=== PATIENT | male | born 1955 | race Caucasian/White ===

== ENCOUNTER 2021-07-16 08:30 | Day surgery (SDC) | payer BC ==
[~2021-07-16 08:30] MED LIST: Lactated Ringers 1,000 ML IV PRN; Sodium Chloride 0.9% 10 ML Syringe FLUSH PRN
[2021-07-16] MEDS ORDERED: Midazolam 1 MG/ML 2 ML SDV IV ONE (08:31)
[2021-07-16] MEDS ORDERED: fentaNYL 100 MCG/2 ML SDV IV ONE ×2 (08:31)
[2021-07-16] MEDS ORDERED: acetaZOLAMIDE 500 MG Cap.ER PO ONE (10:30)
[2021-07-16 12:33] VITALS: BP 101/70
--- NOTE | 2021-07-16 13:47 | OR ---
DATE OF OPERATION: 07/16/2021 SURGEON: Pita Arnold MD PREOPERATIVE DIAGNOSIS: Visually significant cataract, left eye. POSTOPERATIVE DIAGNOSIS: Visually significant cataract, left eye. PROCEDURES PERFORMED: Phacoemulsification with intraocular lens placement, left eye. ASSISTANTS: None. ANESTHESIA: Local with sedation. COMPLICATIONS: None. BLOOD LOSS: None. IMPLANTS: An Jona [id number] 19.5 diopter lens implanted. CDE: 1.74. DESCRIPTION OF PROCEDURE: After risks and benefits were reviewed with the patient, consent was obtained in the preoperative area, and the operative eye was marked with a surgical pen. In the preoperative area, a pledget was used to dilate the pupil consisting of a mixture of phenylephrine 10%, cyclopentolate 2%, moxifloxacin 0.5%, and bupivacaine 0.75%. The patient was taken to the operating room, where a time-out was performed, and the patient was placed under monitored anesthesia care. Topical tetracaine was used for anesthesia. The operative eye was prepped and draped for ophthalmic surgery, and the microscope was brought into position and focused. A paracentesis incision was made, followed by injection of preservative-free 1% lidocaine into the anterior chamber, followed by injection of Viscoat into the anterior chamber. A microkeratome blade was used to make a corneal limbal incision temporally. A cystotome was used to make the beginning of the capsulorrhexis, which was carried around 360 degrees in a curvilinear fashion using Utrata forceps. A Velázquez cannula with BSS was used to hydrodissect and hydrodelineate the nucleus. The nucleus was removed in a divide and conquer manner using phacoemulsification. Irrigation and aspiration were used to remove the remaining cortical material. Provisc was used to inflate the capsular bag, and an Jona [id number] 19.5 diopter lens, serial number [id number] was injected into the capsular bag. A Sinskey hook was used to position and center the lens. Next, irrigation and aspiration was used to remove any remaining viscoelastic and cortical material from the anterior chamber. BSS on a cannula was used to inflate the anterior chamber and hydrate the wound. The wound was checked and found to be watertight. 1 mg of Moxifloxacin was injected into the anterior chamber. Drapes were removed and the eye was cleaned. A drop of brimonidine 0.2% and a drop of TobraDex was placed. The eye was shielded, and the patient was taken to the recovery room in stable condition. /[id number] NUNU/YUN
== END 2021-07-16 10:50 | disposition home or self-care (01) ==
LOC: FB.SDS 08:30
PROVIDERS: ATTEND Ophthalmology
DX: H25.13 Age-related nuclear cataract, bilateral (principal); H04.123 Dry eye syndrome of bilateral lacrimal glands; H40.013 Open angle with borderline findings, low risk, bilateral; H02.413 Mechanical ptosis of bilateral eyelids; Z98.890 Other specified postprocedural states; Z79.899 Other long term (current) drug therapy; G47.33 Obstructive sleep apnea (adult) (pediatric)
CPT/HCPCS: 00142-QZ; A9270-GY; J2250; J3010

== ENCOUNTER 2021-07-30 07:21 | Day surgery (SDC) | payer BC ==
[2021-07-30] MEDS ORDERED: fentaNYL 100 MCG/2 ML SDV IV ONE (07:22)
[2021-07-30] MEDS ORDERED: Midazolam 1 MG/ML 2 ML SDV IV ONE (07:22)
[2021-07-30] MEDS ORDERED: Lactated Ringers 1,000 ML IV PRN (07:30)
[2021-07-30] MEDS: Sodium Chloride 0.9% 10 ML Syringe FLUSH PRN (08:19)
[2021-07-30] MEDS: acetaZOLAMIDE 500 MG Cap.ER PO ONE (09:36)
[2021-07-30 11:01] VITALS: BP 110/62; PULSE 58
--- NOTE | 2021-07-30 12:17 | OR ---
DATE OF OPERATION: 07/30/2021 SURGEON: Pita Arnold MD PREOPERATIVE DIAGNOSIS: Visually significant cataract, right eye. POSTOPERATIVE DIAGNOSIS: Visually significant cataract, right eye. PROCEDURES PERFORMED: Phacoemulsification with intraocular lens placement, right eye. ASSISTANTS: None. ANESTHESIA: Local with sedation. COMPLICATIONS: None. BLOOD LOSS: None. IMPLANTS: Jona Vivity [id number] 19.0 diopter lens implanted. CDE: 2.38. DESCRIPTION OF PROCEDURE: After risks and benefits were reviewed with the patient, consent was obtained in the preoperative area, and the operative eye was marked with a surgical pen. In the preoperative area, a pledget was used to dilate the pupil consisting of a mixture of phenylephrine 10%, cyclopentolate 2%, moxifloxacin 0.5%, and bupivacaine 0.75%. The patient was taken to the operating room, where a time-out was performed, and the patient was placed under monitored anesthesia care. Topical tetracaine was used for anesthesia. The operative eye was prepped and draped for ophthalmic surgery, and the microscope was brought into position and focused. A paracentesis incision was made, followed by injection of preservative-free 1% lidocaine into the anterior chamber, followed by injection of Viscoat into the anterior chamber. A microkeratome blade was used to make a corneal limbal incision temporally. A cystotome was used to make the beginning of the capsulorrhexis, which was carried around 360 degrees in a curvilinear fashion using Utrata forceps. A Velázquez cannula with BSS was used to hydrodissect and hydrodelineate the nucleus. The nucleus was removed in a divide and conquer manner using phacoemulsification. Irrigation and aspiration were used to remove the remaining cortical material. Provisc was used to inflate the capsular bag, and a Jona Vivity [id number] 19.0 diopter lens, serial number [id number] was injected into the capsular bag. A Sinskey hook was used to position and center the lens. Next, irrigation and aspiration was used to remove any remaining viscoelastic and cortical material from the anterior chamber. BSS on a cannula was used to inflate the anterior chamber and hydrate the wound. The wound was checked and found to be watertight. 1 mg of Moxifloxacin was injected into the anterior chamber. Drapes were removed and the eye was cleaned. A drop of brimonidine 0.2% and a drop of TobraDex was placed. The eye was shielded, and the patient was taken to the recovery room in stable condition. /[id number] NUNU/YUN
== END 2021-07-30 09:45 | disposition home or self-care (01) ==
LOC: FB.SDS 07:21
PROVIDERS: ATTEND Ophthalmology
DX: H25.13 Age-related nuclear cataract, bilateral (principal); H04.123 Dry eye syndrome of bilateral lacrimal glands; H02.413 Mechanical ptosis of bilateral eyelids; H40.013 Open angle with borderline findings, low risk, bilateral; R53.83 Other fatigue; I73.00 Raynaud's syndrome without gangrene; E78.00 Pure hypercholesterolemia, unspecified; G47.33 Obstructive sleep apnea (adult) (pediatric); Z79.899 Other long term (current) drug therapy
CPT/HCPCS: 00142-QZ; A9270-GY; J2250; J3010; V2788-GY

== ENCOUNTER 2021-10-29 08:50 | Day surgery (SDC) | payer BC ==
[2021-10-29] MEDS ORDERED: Propofol 200 MG/20 ML SDV IV ONE (08:51)
[2021-10-29] MEDS ORDERED: Lactated Ringers 1,000 ML IV SCH (09:00)
[2021-10-29] MEDS ORDERED: Sodium Chloride 0.9% 10 ML Syringe FLUSH PRN (09:00)
--- NOTE | 2021-10-29 11:12 | PCM.HP.2 ---
H&P History of Present Illness - General Date of Service: 10/29/21 Admit Problem/Dx: Admission Diagnosis/Problem Admission Diagnosis/Problem Colonoscopy Source of Information: Patient, Old Records History Limitations: Reports: No Limitations - History of Present Illness Initial Comments - Free Text/Narative: Here for colonoscopy - Related Data Allergies/Adverse Reactions: Allergies Allergy/AdvReac Type Severity Reaction Status Date / Time No Known Allergies Allergy Verified 10/29/21 10:57 Home Medications: Home Meds Citalopram Hydrobromide [Citalopram HBr] 20 mg PO DAILY 07/10/14 [History] Fexofenadine [Marline] 180 mg PO DAILY PRN 07/12/21 [History] Sildenafil Citrate [Viagra] 100 mg PO ASDIRECTED PRN 07/12/21 [History] amLODIPine Besylate [Amlodipine Besylate] 10 mg PO DAILY 07/12/21 [History] atorvaSTATin [Lipitor] 40 mg PO BEDTIME 07/12/21 [History] mycophenolate mofetiL [Cellcept] 500 mg PO ASDIRECTED 07/12/21 [History] Past Medical History HEENT History: Reports: Cataract Other HEENT History: CATARACT SURGERY 2020. 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 Musculoskeletal History: Reports: Other (See Below) Other Musculoskeletal History: CARPAL TUNNEL SYNDROME Neurological History: Reports: None Psychiatric History: Reports: Anxiety, Depression Endocrine/Metabolic History: Reports: None Hematologic History: Reports: None Immunologic History: Reports: None Oncologic (Cancer) History: Reports: None Dermatologic History: Reports: None - Past Surgical History Cardiovascular Surgical History: Reports: None GI Surgical History: Reports: Appendectomy, Cholecystectomy Musculoskeletal Surgical History: Reports: Arthroscopic Knee, Carpal Tunnel Social & Family History - Family History Family Medical History: No Pertinent Family History - Tobacco Use Tobacco Use Status *Q: Never Tobacco User - Caffeine Use Caffeine Use: Reports: Coffee, Soda - Alcohol Use Number of Drinks Per Day: 2 Date of Last Drink: 10/28/21 Time of Last Drink: 23:00 - Recreational Drug Use Recreational Drug Use: No H&P Review of Systems - Review of Systems: Review Of Systems: Comprehensive ROS is negative, except as noted in HPI. Exam - Exam Exam: See Below - Vital Signs Vital Signs: Last Vital Signs Temp 99.1 F 10/29/21 09:16 Pulse 70 10/29/21 09:16 Resp 17 10/29/21 09:16 BP 131/74 10/29/21 09:16 Pulse Ox 96 10/29/21 09:16 Weight: 88.451 kg - Exam General: Alert, Oriented Neck: Supple, Trachea Midline Lungs: Clear to Auscultation, Normal Respiratory Effort Cardiovascular: Regular Rate, Regular Rhythm GI/Abdominal Exam: Soft, Non-Tender Sepsis Event Note - Focused Exam Vital Signs: Vital Signs Temp Pulse Resp BP Pulse Ox 10/29/21 09:16 99.1 F 70 17 131/74 96 Problem List Initiated/Reviewed/Updated: Yes Orders Last 24hrs: Active Orders 24 hr Category Date Time Status Patient Status [ADT] Routine ADT 10/29/21 09:00 Active Patient to Empty Bladder [RC] ASDIRECTED Care 10/29/21 09:00 Active Verify Patient Consent Obtain [RC] ASDIRECTED Care 10/29/21 09:00 Active Nothing Per Oral Diet [DIET] Diet 10/29/21 Breakfast Ordered Lactated Ringers [Ringers, Lactated] 1,000 ml Med 10/29/21 09:00 Active IV ASDIRECTED Sodium Chloride 0.9% [Saline Flush] Med 10/29/21 09:00 Active 10 ml FLUSH ASDIRECTED PRN Peripheral IV Insertion Adult [OM.PC] Routine Oth 10/29/21 09:00 Ordered Medication Orders Lactated Ringer's (Ringers, Lactated) 1,000 mls @ 125 mls/hr IV ASDIRECTED [facility] Last Admin: 10/29/21 10:45 Dose: 125 mls/hr Documented by: BOSHCAT Sodium Chloride (Sodium Chloride 0.9% 10 Ml Syringe) 10 ml FLUSH ASDIRECTED PRN PRN Reason: Keep Vein Open Assessment/Plan Comment:: Colon Screening; ok toproceed. Risks and complications reviewed, consent obtained
--- NOTE | 2021-10-29 11:40 | PCM.OPNOTE ---
- General Post-Op/Procedure Note Date of Surgery/Procedure: 10/29/21 Operative Procedure(s): Colonoscopy with polypectomy Findings: Rectal Polyp, sig tics Pre Op Diagnosis: Screening Post-Op Diagnosis: Same Anesthesia Technique: MAC Primary Surgeon: Mitchell Coats Anesthesia Provider: Feli Cloud Pathology: Rectal Polyp at 15 cm EBL in mLs: 0 Complications: None Condition: Good
[2021-10-29 11:58] VITALS: BP 112/70; PULSE 61
--- NOTE | 2021-10-29 12:11 | OR ---
DATE OF OPERATION: 10/29/2021 SURGEON: Mitchell Coats MD PREOPERATIVE DIAGNOSIS: Colon screening. POSTOPERATIVE DIAGNOSES: 1. Rectal polyp. 2. Sigmoid diverticulosis. PROCEDURE: Colonoscopy with polypectomy. ANESTHESIA: IV sedation. PROCEDURE IN DETAIL: The patient was brought to the procedure room where he was placed on his left side and IV sedation administered. Digital rectal exam was performed which was normal. The colonoscope was inserted and advanced to the level of the cecum without difficulty. Cecal position was confirmed by identifying the appendiceal lumen and ileocecal valve. Prep was good and surfaces well visualized. Upon withdrawing the scope, the ascending, transverse, and descending colon were normal in appearance. The sigmoid colon had a few larger diverticula present. In the proximal rectum at 15 cm was a small 4 mm sessile polyp removed with the hot biopsy forceps. The remaining rectum was normal. Retroflexion was normal. Air was removed and the scope withdrawn. The patient tolerated the procedure well and returned to recovery in stable condition. The patient will be contacted with the pathology report when it returns. If the polyp is adenomatous, he should undergo a repeat colonoscopy again in 5 years. If the polyp is hyperplastic, he can wait 10 years until his next colon screening. /[id number] MIMI/YUN
== END 2021-10-29 12:25 | disposition home or self-care (01) ==
LOC: FB.SDS 08:50
PROVIDERS: ATTEND Surgery
DX: Z12.11 Encounter for screening for malignant neoplasm of colon (principal); K57.30 Diverticulosis of large intestine without perforation or abscess without bleeding; K63.5 Polyp of colon; I10 Essential (primary) hypertension; G47.30 Sleep apnea, unspecified; Z79.899 Other long term (current) drug therapy; Z90.49 Acquired absence of other specified parts of digestive tract
CPT/HCPCS: 00812-QZ; 88305; J2704; J7120

== ENCOUNTER 2025-07-26 02:58 | Emergency (ER) | payer BC, MEDICARE ==
[2025-07-26] MEDS ORDERED: Sodium Chloride 0.9% 10 ML Syringe FLUSH PRN (03:08)
[2025-07-26 03:16] LABS: BASOPHILS ABSOLUTE AUTO 0.1 x10-3/uL (0.0-0.3); BASOPHILS PERCENT AUTO 0.5 % (0.3-3.8); EOSINOPHILS ABSOLUTE AUTO 0.3 x10-3/uL (0.0-0.6); EOSINOPHILS PERCENT AUTO 2.5 % (0.1-6.8); LYMPHOCYTES ABSOLUTE AUTO 1.9 x10-3/uL (0.5-4.5); LYMPHOCYTES PERCENT AUTO 14.1 % (15.8-45.3); MEAN PLATELET VOLUME 8.1 fL (6.7-11.0); MONOCYTES ABSOLUTE AUTO 0.8 x10-3/uL (0.0-1.2); MONOCYTES PERCENT AUTO 5.9 % (5.5-15.2); NEUTROPHILS ABSOLUTE AUTO 10.2 x10-3/uL (1.7-6.9); NEUTROPHILS PERCENT AUTO 77.0 % (40.3-71.8); PLATELET COUNT,PLT 250 x10(3)uL (117-477); RED BLOOD CELL COUNT 4.42 x10(6)uL (3.90-5.90); RED CELL DISTRIBUTION WIDTH 13.0 % (12.4-15.0); WHITE BLOOD CELL COUNT,WBC 13.2 x10-3/uL (3.2-10.1)
[2025-07-26 03:25] LABS: BASE EXCESS VENOUS,POC 3 mmol/L (-2 - 3+); PCO2 VENOUS,POC 47 mmHg (41-51); PH VENOUS,POC 7.39 pH Units (7.32-7.43)
[2025-07-26 03:26] LABS: A/G RATIO 1.0; CREATININE 1.1 mg/dL (0.70-1.30); EST CRCL DRUG DOSING (CG) 65.44 mL/min; ESTIMATED GFR 73 mL/min (>60); PROTEIN TOTAL,TP 7.1 g/dL (6.0-8.0)
[2025-07-26 03:33] LABS: PRO B-TYPE NATRIUR PEPT,BNPPRO 112.0 pg/mL (<=125)
[2025-07-26] MEDS: Nitroglycerin 0.4 MG Tab.SL SL PRN (03:36)
[2025-07-26 03:39] LABS: BLOOD UREA NITROGEN,BUN 11 mg/dL (7-18); CARBON DIOXIDE,CO2 33 mmol/L (21-32); CHLORIDE,CL 104 mmol/L (100-110); GLUCOSE RANDOM 117 mg/dL (80-116); POTASSIUM,K 3.5 mmol/L (3.5-5.3); SODIUM,NA 139 mmol/L (135-145)
[2025-07-26 03:45] LABS: ALANINE AMINOTRANSFERASE,ALT 27 U/L (12-36); ASPARTATE AMNIOTRANSFERASE,AST 17 IU/L (5-25); BILIRUBIN TOTAL 0.3 mg/dL (0.1-1.3)
[2025-07-26] MEDS: Iopamidol 755 Mg/ML 100 ML Bottle IV SCH (05:13)
[2025-07-26 06:55] VITALS: BP 137/75; PULSE 81
== END 2025-07-26 06:55 | disposition home or self-care (01) ==
LOC: FB.ED 02:58
DX: J20.9 Acute bronchitis, unspecified (principal); R07.81 Pleurodynia; F17.210 Nicotine dependence, cigarettes, uncomplicated; Z79.899 Other long term (current) drug therapy
CPT/HCPCS: 36415; 71045; 71275; 80053; 80307; 83735; 83880; 84484; 85025; 85379; 86140; 93005; 99285; A9270; J7030; Q9967